=== PATIENT | female | born 1945 | race Two or more races ===

== ENCOUNTER 2024-03-17 16:50 | Emergency (ER) | payer OTHER, MEDICAID ==
[~2024-03-17] VITALS: Ht 160 cm; Wt 72.7 kg
[2024-03-17 17:18] VITALS: BP 169/78; PULSE 84; RESP 18; TEMP 98.6; O2SAT 95
[2024-03-17] MEDS ORDERED: ACE3T PO (20:46)
[2024-03-17] MEDS: ONDANSETRON ODT 4 MG TAB PO ONE (20:57)
[2024-03-17] MEDS: HYDROcodone-ACET 5/325MG TAB PO ONE (20:58)
== END 2024-03-17 20:47 | disposition home or self-care (01) ==
LOC: EDBD 16:50 → ER 16:50
DX: S39.012A Strain of muscle, fascia and tendon of lower back, initial encounter (principal); I10 Essential (primary) hypertension; Z88.6 Allergy status to analgesic agent; W18.09XA Striking against other object with subsequent fall, initial encounter; Y93.89 Activity, other specified; Y92.811 Bus as the place of occurrence of the external cause; Y99.8 Other external cause status
CPT/HCPCS: 70450; 72100; 99284; Q0162